=== PATIENT | male | born 1995 | race Caucasian/White ===

== ENCOUNTER 2019-04-22 17:45 | Emergency (ER) | payer OTHER, BC ==
[~2019-04-22] VITALS: Ht 193 cm; Wt 124.3 kg
[~2019-04-22 17:45] MED LIST: AMLODIPINE; CEPHALEXIN 500500 M3 PO; CIPRO250 M2 PO; HYDROCODONE-AP1 EAC6 PO; IBUPROFEN 800800 M1 PO; LISINOPRIL; LISINOPRIL20 MG PO; MEDROL DOSPAK21 TA1 PO; NORVASC5 MG PO; PHENERGAN 25 MG25 M1 PO; PREDNISONE 5 MG5 M1 PO; PREDNISONE50 MG PO; PROMS25 WY RECTAL
[2019-04-22] MEDS ORDERED: BYSTOLIC10 MG PO (17:55)
[2019-04-22 18:27] LABS: ABSOLUTE BASOPHILS 0.1 thou/uL (0.0-0.2); ABSOLUTE EOSINOPHILS 0.1 thou/uL (0.0-0.7); ABSOLUTE LYMPHOCYTES 2.6 thou/uL (0.8-5.3); ABSOLUTE MONOCYTES 0.5 thou/uL (0.0-1.2); ABSOLUTE NEUTROPHILS 4.5 thou/uL (1.6-8.1); BASOPHILS 0.8 %; EOSINOPHILS 1.7 %; HEMATOCRIT 43.5 % (42.0-52.0); LYMPHOCYTES 33.2 %; MCH 29.6 pg (26.0-34.0); MCHC 34.5 g/dL (28.0-37.0); MCV 85.7 fL (80.0-100.0); MONOCYTES 6.6 %; MPV 8.5 fl. (7.2-11.1); NUCLEATED RBCS 0 /100WBC; PLATELET COUNT* 248 thou/uL (150-400); POLYS 57.7 %; RBC 5.08 mil/uL (4.50-6.00); RDW-CV 12.8 % (10.5-14.5); WBC 7.8 thou/uL (4.0-11.0)
[2019-04-22 18:36] LABS: CALCIUM 8.6 mg/dL (8.5-10.1); CREATININE 1.4 mg/dL (0.6-1.3); POTASSIUM 4.2 mmol/L (3.5-5.1)
[2019-04-22 18:50] LABS: ALBUMIN 4.1 g/dL (3.4-5.0); CK-MB MASS 1.6 ng/mL (<0.5-3.6); TOTAL BILIRUBIN 0.5 mg/dL (<0.1-1.0); TOTAL PROTEIN 7.8 g/dL (6.4-8.2)
[2019-04-22 18:59] LABS: APTT 27.5 Seconds (25.0-31.3); PROTIME 10.6 Seconds (9.20-11.50)
[2019-04-22 19:23] VITALS: BP 144/71
--- NOTE | 2019-04-23 10:12 | EKG ---
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1995 Requested By: Ania Reese Order Number: [id number] MD: Blake So Measurements Intervals [place] Rate: 64 P: 26 IA: 153 QRS: -4 QRSD: 105 T: 30 QT: 381 QTc: 393 Interpretive Statements Sinus rhythm RSR' in V1 or V2, right VCD or RVH Baseline wander in lead(s) I,V1,V3,V4,V5,V6 Compared to ECG 07/07/2016 20:25:33 Sinus tachycardia no longer present Electronically Signed On 04-23-2019 10:11:30 WRAPPING CHECKER by Blake So [email or web address] <ELECTRONICALLY SIGNED> By: Blake So MD, FAC 04/23/19 1011 1750 1750 Blake So MD, [facility] /EPI
--- NOTE | 2019-04-23 10:12 | EKG ---
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1995 Requested By: Alejandro Negro Order Number: [id number] MD: Blake So Measurements Intervals [place] Rate: 68 P: 27 AK: 155 QRS: -3 QRSD: 99 T: 31 QT: 384 QTc: 409 Interpretive Statements Sinus rhythm Ventricular premature complex Probable left atrial enlargement RSR' in V1 or V2, probably normal variant Baseline wander in lead(s) V1 Electronically Signed On 04-23-2019 10:12:02 KITCHEN CLERK by Blake So [email or web address] <ELECTRONICALLY SIGNED> By: Blake So MD, [facility] 04/23/19 1012 175 175 Blake So MD, [facility] /EPI
== END 2019-04-22 19:23 | disposition home or self-care (01) ==
LOC: M.ERS 17:45
PROVIDERS: Family Medicine
DX: R00.2 Palpitations (principal); I10 Essential (primary) hypertension; Z88.1 Allergy status to other antibiotic agents; Z88.8 Allergy status to other drugs, medicaments and biological substances; Z90.49 Acquired absence of other specified parts of digestive tract